=== PATIENT | female | born 1980 | race Two or more races ===

== ENCOUNTER → 2024-12-08 | Outpatient (CLI) | payer BC, SELFPAY | END | disposition home or self-care (01) | LOC: SLDO 14:37 | PROVIDERS: Referring Provider Family Medicine; Visit Provider Family Medicine | DX: N39.0 Urinary tract infection, site not specified (principal) | CPT/HCPCS: 87077; 87086; 87186 ==

== ENCOUNTER → 2025-02-22 | Outpatient (CLI) | payer BC, SELFPAY ==
--- NOTE | 2025-02-22 14:30 | XR_ITS ---
Examination: Breast ultrasound complete, bilateral Date and time of exam: February 22, 2025 1456 hours Comparison bilateral breast sonography August 30, 2024 INDICATIONS: Bilateral breast lumps noticed beginning 6 months ago Technique: Real-time grayscale ultrasonographic imaging bilateral breasts, including all 4 quadrants as well as nipple retroareolar and axillary regions. Findings: Sonographic images right breast 5:00 nodule lobular margins 14 x 11 mm with breast biopsy marker 5:00 nodule circumscribed 6 x 6 mm 5:00 nodule lobular margins 8 x 8 mm Sonographic images left breast 4:00 nodule circumscribed 10 x 8 mm 10:00 nodule with breast biopsy markers circumscribed 12 x 7 mm Retroareolar nodule 6 x 6 mm Bilateral additional smaller nodules IMPRESSION: BI-RADS Category 3: Probably benign findings Continued 6 month bilateral breast sonography follow-up is needed
--- NOTE | 2025-02-22 15:30 | XR_ITS ---
Examination: Diagnostic digital mammography, bilateral Computer aided detection 3-D breast Tomosynthesis, bilateral Date and time of exam: February 22, 2025 at 1517 hours Compared to mammograms dating to 06/27/2023 Technique: Nonmagnified MLO, CC views of the breasts to been obtained, reconstructed from 3-D Tomosynthesis images. R2 computer aided detection program utilized for evaluation of suspicious masses and/or abnormal calcifications. 3-D Tomosynthesis images obtained. Findings: The breasts are heterogeneously dense, which may obscure small masses Again noted bilateral breast markers Benign calcifications The breast architecture is nodular Please see the bilateral breast sonography report today indicating numerous bilateral breast nodules Impression: BI-RADS Category 2: Benign findings Recommend yearly follow-up mammography Recommend continued 6 month bilateral breast sonography follow-up to document stability of bilateral breast nodules described on bilateral breast sonography today.
== END | disposition home or self-care (01) ==
PROVIDERS: PCP Family Medicine; Referring Provider Surgery; Visit Provider Surgery
DX: R92.323 Mammographic fibroglandular density, bilateral breasts (principal); N63.14 Unspecified lump in the right breast, lower inner quadrant; N63.23 Unspecified lump in the left breast, lower outer quadrant; N63.42 Unspecified lump in left breast, subareolar
CPT/HCPCS: 76641; 77062; 77066; G0279

== ENCOUNTER 2025-07-01 12:00 | Day surgery (SDC) | payer BC, SELFPAY ==
[2025-07-01] VITALS (14 sets, daily range): BP systolic 112–183; BP diastolic 79–115; PULSE 77–106; RESP 13–27; TEMP 36.6; O2SAT 95–100; BMI 27.8
[2025-07-01] MEDS: hydrALAZINE INJ 20 MG/ML VIAL 10 MG IVP (12:35)
[2025-07-01] MEDS: SODIUM CHLORIDE 0.9% 500 ML 500 ML 20 ML IV (13:18)
[2025-07-01] MEDS: fentaNYL CIT INJ 50 mCg/ML AMP 2ML (ASD USE ONLY) IVP (13:25)
[2025-07-01] MEDS: MIDAZOLAM INJ 1 MG/ML VIAL 2 ML (ASD USE ONLY) 2 MG IVP (13:27)
== END 2025-07-01 14:40 | disposition home or self-care (01) ==
PROVIDERS: PCP Registered Nurse; Referring Provider Specialist; Visit Provider Specialist
PROC: 0DBE8ZX Excision of Large Intestine, Via Natural or Artificial Opening Endoscopic, Diagnostic (ICD-10-PCS; CPT 45380; principal; 2025-07-01 12:30)
DX: D12.7 Benign neoplasm of rectosigmoid junction (principal); K64.2 Third degree hemorrhoids
CPT/HCPCS: 45385; 45398; 81025; A4217; A4649; J0360; J1200; J2250; J3010; J7999

== ENCOUNTER → 2025-08-26 | Outpatient (CLI) | payer BC, SELFPAY ==
--- NOTE | 2025-08-26 08:58 | XR_ITS ---
Examination: Knee, left, 3 views Technique: Knee AP, lateral, oblique 3 views Date and time of exam: August 26, 2025, 0932 hours INDICATIONS: Right knee pain beginning 6 months ago. FINDINGS: No fracture or dislocation. Mild narrowing medial patellofemoral joints No fractures IMPRESSION: Mild narrowing medial patellofemoral joints
--- NOTE | 2025-08-26 09:01 | XR_ITS ---
Examination: Duplex scan of the lower extremity, unilateral left complete Date and time of exam: August 26, 2025, 0948 hours INDICATIONS: Left knee pain beginning 6 months ago Technique: Duplex scan of the extremity veins using B-mode/grayscale imaging and Doppler spectral analysis and color flow Attention is directed to internal echogenicity, compression and augmentation involving these veins, color flow assessment, spectral analysis Findings: Major deep venous structures in the extremity demonstrate normal course and caliber. There is no evidence of deep vein thrombosis. Normal color flow and spectral analysis Impression: Negative for DVT..
--- NOTE | 2025-08-26 09:01 | XR_ITS ---
Examination: Transvaginal ultrasound of the pelvis, complete Technique: Transvaginal sonographic images pelvis performed using denis scale imaging Exam date and time: August 26, 2025, 10:00 a.m. INDICATIONS: Pelvic pain beginning 6 months ago, hysterectomy FINDINGS: Absent uterus Right ovary 2.2 cm arterial flow Left ovary 2.8 cm arterial flow IMPRESSION: Absent uterus No adnexal mass.
== END | disposition home or self-care (01) ==
PROVIDERS: PCP Registered Nurse; Referring Provider Registered Nurse; Visit Provider Registered Nurse
DX: R10.20 Pelvic and perineal pain unspecified side (principal); M25.862 Other specified joint disorders, left knee
CPT/HCPCS: 73562; 76830; 93971

== ENCOUNTER → 2025-09-29 | Outpatient (CLI) | payer BC, SELFPAY ==
[2025-09-29 14:04] LABS: Collection Type, Urine Clean Catch
[2025-09-29 15:36] LABS: Bacteria,Urine 1+; Bilirubin,Urine Negative (Negative); Blood,Urine Negative (Negative); Clarity,Urine Clear (Clear/Hazy); Color,Urine Lt-Yellow (Lt Yel-Yel); Glucose, Urine Negative (Negative); Ketones,Urine Negative (Negative); Leukocyte Esterase,Urine Positive (Negative); Nitrite,Urine Positive (Negative); PH,Urine 6.0 (5.0-7.0); Protein,Urine Negative (Neg - Trace); RBC,Urine 6 /hpf (0-3); Specific Gravity,Urine 1.013 (1.001-1.035); Squamous Epithelial Cell,Urine < 1 /hpf (0-5); Urobilinogen,Urine Negative mg/dL (0.0-1.0); WBC,Urine 70 /hpf (0-5)
== END | disposition home or self-care (01) ==
LOC: SLDO 14:00
PROVIDERS: PCP Registered Nurse; Referring Provider Registered Nurse; Visit Provider Registered Nurse
DX: N39.0 Urinary tract infection, site not specified (principal)
CPT/HCPCS: 81001; 87077; 87086; 87186